=== PATIENT | female | born 1945 | race Caucasian/White ===

== ENCOUNTER 2019-09-22 16:39 | Emergency (ER) | payer OTHER, MEDICARE ==
[~2019-09-22] VITALS: Ht 167.6 cm; Wt 71.2 kg
--- NOTE | ~2019-09-22 | EMS ---
[facility] [address] [place] [address] EMS Patient Care Report Name: KAMILLA QUARLES Room #: REG FLYNN Hou#: [id number] Admission: 09/22/19 Attend Phys: Discharge: Date of : 43 Report #: [id number] THIS REPORT FOR: //name// Report Transmitted: 09/22/2019 16:[address] [facility] MED-ACT Incident [id number] @ 09/22/2019 16:02 Incident Location [address] [place] [address] Patient KAMILLA QUARLES Female, 73 Years 1945 Patient Address [address] [place] [address]. [place] [address] Patient History Breast Cancer, Patient Allergies Codeine,Doxycycline,Augmentin,Demerol, Chief Complaint Abdominal pain Disposition Transported No Lights/[place] Reason Abdominal Pain/Problems Transported To [facility] Narrative Arrived on scene at the surgery center to find the patient lying supine in bed. She is awake and alert x3 to EMS and appears in NAD. RN reports that the patient had an EGD and colonoscopy today and after surgery began complaining of lower abdominal pain. She states that the pain is in both the LLQ and RLQ and constant in nature. The patient describes the pain as a cramping pain and [facility] [address] [place] [address] EMS Patient Care Report Name: KAMILLA QUARLES Room #: REG Savi#: [id number] Admission: 09/22/19 Attend Phys: Discharge: Date of : 43 Report #: [id number] rates the pain as an 8 on the 1-10 pain scale. The physician does not order pain meds and just requests ambulance transport to [facility]. The patient denies any chest pain, shortness of breath, or N/V. ABC's, Hx, VS, PE, the patient moves herself to the cot, saline lock in place by facility in the left wrist, moved to unit, contacted [facility] with report, arrived at the ER with no changes. Initial Vitals @16:21P: 80,R: 16,BP: 148/75,Pain: 8/10,GCS: 15,SpO2: 98,Revised Trauma: 12, @16:32P: 76,R: 16,BP: 148/72,SpO2: 98, Assessments @16:13MENTAL:Person Oriented,Time Oriented,Event Oriented,Place Oriented,SKIN:HEENT:Head/Face: No Abnormalities,Neck/Airway: No Abnormalities,LUNG SOUNDS:Right Lower: Tenderness,Left Lower: Tenderness,ABDOMEN:Right Lower: Tenderness,Left Lower: Tenderness,PELVIS//GI:EXTREMITIES:Left Arm: No Abnormalities,Right Arm: No Abnormalities,Left Leg: No Abnormalities,Right Leg: No Abnormalities,PULSE:NEURO:No Abnormalities, Impression Abdominal Pain Timeline 16:01,Call Received 16:01,Psap Call 16:02,Dispatched 16:03,En Route 16:09,On Scene 16:11,At Patient 16:21,BP: 148/75 M,PULSE: 80,RR: 16 R,SPO2: 98 Ox,ETCO2: ,BG: ,PAIN: 8,GCS: 15, 16:22,Depart Scene 16:32,BP: 148/72 M,PULSE: 76,RR: 16 R,SPO2: 98 Ox,ETCO2: ,BG: ,PAIN: ,GCS: , 16:36,At Destination 16:50,Call Closed Disclaimer v1.1 Copyright 2020 [employer] This EMS Care Summary contains data elements from the applicable legal record (which may be displayed differently). It is designed to provide pertinent information for the following purposes: continuity of care, clinical quality, and state data reporting. The complete legal record is available to ED staff and administrators of the receiving hospital in [email or web address]'s Patient Tracker. All data is provided "as is."
[~2019-09-22 16:39] MED LIST: ALLEGRA180 MG PO; CELEXA 20 MG TA20 M1 PO; HYDROCODON-ACE1 EAC7 PO; PREMARIN0.3 MG PO; PRILOSEC40 MG PO; VITAMIN D-32000 UNIT PO
[2019-09-22 16:42] VITALS: BP 177/75
[2019-09-22] MEDS ORDERED: EXCEDRIN CAPLE1 EACH PO (16:49)
[2019-09-22] MEDS ORDERED: VITAMIN C100 MG PO (16:49)
[2019-09-22] MEDS ORDERED: VITAMIN B-1100 M2 PO (16:50)
[2019-09-22 17:18] LABS: ABSOLUTE NEUTROPHILS 9.4 thou/uL (1.4-8.2); BASOPHILS 0.5 % (0.0-2.0); EOSINOPHILS 0.4 % (0.0-3.0); HEMATOCRIT 38.7 % (37.0-47.0); HEMOGLOBIN 13.3 gm/dL (12.0-15.0); LYMPHOCYTES 9.4 % (24.0-44.0); MCH 32.9 pg (26.0-34.0); MCHC 34.3 g/dL (28.0-37.0); MCV 95.9 fL (80.0-100.0); MONOCYTES 4.5 % (1.0-8.0); PLATELET COUNT 276 thou/uL (150-400); POLYS 85.2 % (36.0-66.0); RBC 4.04 mil/uL (4.20-5.00); RDW 13.5 % (10.5-14.5)
[2019-09-22 17:28] LABS: ANION GAP 8 mmol/L (7-16); BUN 13 mg/dL (7-18); CALCIUM 8.7 mg/dL (8.5-10.1); CHLORIDE 100 mmol/L (98-107); CO2 28 mmol/L (21-32); CREATININE 0.8 mg/dL (0.6-1.0); GLUCOSE 93 mg/dL (74-106); POTASSIUM 3.5 mmol/L (3.5-5.1); SODIUM 136 mmol/L (136-145)
[2019-09-22 17:38] LABS: ALBUMIN 3.6 g/dL (3.4-5.0); LIPASE 85 U/L (73-393); SGOT 22 U/L (15-37); SGPT 15 U/L (30-65); TOTAL BILIRUBIN 0.6 mg/dL (0.2-1.0); TOTAL PROTEIN 7.2 g/dL (6.4-8.2); TROPONIN-I <0.06 ng/mL (<0.06)
[2019-09-22 17:38] LABS: URINE BILIRUBIN NEGATIVE (Negative); URINE BLOOD 2+ (Negative); URINE CLARITY CLEAR; URINE COLOR YELLOW; URINE GLUCOSE-RANDOM* NEGATIVE (Negative); URINE KETONES TRACE (Negative); URINE LEUKOCYTES-REFLEX NEGATIVE (Negative); URINE NITRITE-REFLEX NEGATIVE (Negative); URINE PROTEIN (DIPSTICK) NEGATIVE (Negative); URINE UROBILINOGEN 0.2 E.U./dl (0.2-1.0)
[2019-09-22] MEDS ORDERED: VITAMIN C500 M1 PO (17:39)
[2019-09-22] MEDS ORDERED: VITAMIN B-12100 MC1 PO (17:39)
[2019-09-22] MEDS ORDERED: VALIUM5 MG PO (17:40)
[2019-09-22] MEDS ORDERED: HYDROCHLOROTHIA25 M2 PO (17:40)
[2019-09-22] MEDS ORDERED: DULOXETINE HCL60 MG PO (17:40)
[2019-09-22] MEDS ORDERED: AMBIEN 10 MG TA10 MG PO (17:41)
[2019-09-22] MEDS ORDERED: TYLENOL ARTHRI650 MG PO (17:41)
[2019-09-22 17:59] LABS: CASTS None Seen /LPF (None Seen); CRYSTALS None Seen /LPF (None Seen); SQUAMOUS 0-3 Few /LPF (0-3); URINE RBC 3-10 Few /HPF (0-2); URINE WBC-REFLEX 0-5 Rare /HPF (0-5)
[2019-09-22 18:00] LABS: BACTERIA-REFLEX 1-9 Few /HPF (None Seen)
[2019-09-22] MEDS ORDERED: NORCO 5-325 TA1 EAC2 PO (19:42)
--- NOTE | 2019-09-23 07:55 | EKG ---
[facility] [place] [address] [address] ELECTROCARDIOGRAM REPORT Name: KAMILLA QUARLES Room #: DEP [facility]#: [id number] Admission: 09/22/19 Attend Phys: Discharge: 09/22/19 Date of : 43 Report #: [id number] THIS REPORT FOR: cc: Jaden Nuñez Steven F. DO Lundgren, Craig H. 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
== END 2019-09-22 19:55 | disposition home or self-care (01) ==
LOC: ER 16:39
PROVIDERS: Physician Assistant
DX: R10.84 Generalized abdominal pain (principal); Z90.49 Acquired absence of other specified parts of digestive tract; Z90.710 Acquired absence of both cervix and uterus; Z90.89 Acquired absence of other organs; Z87.891 Personal history of nicotine dependence; Z79.899 Other long term (current) drug therapy; Z88.1 Allergy status to other antibiotic agents; Z88.2 Allergy status to sulfonamides; Z88.5 Allergy status to narcotic agent; Z88.8 Allergy status to other drugs, medicaments and biological substances; Z91.048 Other nonmedicinal substance allergy status

== ENCOUNTER → 2019-11-27 | Outpatient (CLI) | payer OTHER, MEDICARE ==
[~2019-11-27] MED LIST changes: +AMBIEN 10 MG TA10 MG PO; +DULOXETINE HCL60 MG PO; +EXCEDRIN CAPLE1 EACH PO; +HYDROCHLOROTHIA25 M2 PO; +NORCO 5-325 TA1 EAC2 PO; +OMEPRAZOLE40 MG PO; +TYLENOL ARTHRI650 MG PO; +VALIUM5 MG PO; +VITAMIN B-1100 M2 PO; +VITAMIN B-12100 MC1 PO; +VITAMIN C100 MG PO; +VITAMIN C500 M1 PO
== END ==
LOC: LAB 09:37
PROVIDERS: ATTEND Surgery
DX: Z01.812 Encounter for preprocedural laboratory examination (principal); Z20.828 Contact with and (suspected) exposure to other viral communicable diseases

== ENCOUNTER 2019-12-02 11:30 | Day surgery (SDC) | payer OTHER, MEDICARE ==
[~2019-12-02] VITALS: Ht 165.1 cm; Wt 73.0 kg
--- NOTE | ~2019-12-02 | O ---
[facility] [place] [address] OPERATIVE REPORT Name: KAMILLA QUARLES Room #: DEP [facility].#: [id number] Admission: 12/02/19 Attend Phys: Pedro Thomas MD Discharge: 12/02/19 Date of : 43 Report #: [id number] THIS REPORT FOR: cc: Jaden Nuñez,Pedro Key MD ~ CC: Pedro Nuñez MD PREOPERATIVE DIAGNOSES: 1. Basal cell carcinoma of the back with positive lateral margins ____ x 2, mid lower back and right lower back. 2. Suspicious lesion, left scapula. POSTOPERATIVE DIAGNOSES: 1. Basal cell carcinoma of the back with positive lateral margins ____ x 2, mid lower back and right lower back. 2. Suspicious lesion, left scapula. PROCEDURE PERFORMED: Wide excision of basal cell x 2 in the back and excision of left scapular suspicious lesion. All these lesions were excised with ellipse about 2.5 cm x 5 cm. SURGEON: Pedro Thomas MD ANESTHESIA: IV sedation in the right lateral decubitus position. COMPLICATIONS: None. ESTIMATED BLOOD LOSS: 20 mL. PROCEDURE NOTE: With the patient in the right side down lateral position, the back was prepped and draped in sterile fashion with ChloraPrep. This was ____ off and toweled and draped in sterile fashion. Timeout was performed. 0.25% Marcaine was used to anesthetize the skin surrounding the lesion. The back lesion had a couple of stitches in it and wide margins were obtained about a little over a centimeter from each side from all around the previous biopsy site. The excision was carried down through the subcutaneous tissue removing quite a bit of subcutaneous fat. The second right-sided back lesion was excised in a similar manner and then the left posterior scapular blade lesion was also removed. The previous cancer was sent to pathology. The medial lower back one did have a basal cell that was traveling below the skin level. This is along the inferior aspect. The patient has extensive history of basal cell, I am not sure that will ever get a complete clearance. Procedure was terminated. The [address] [address] OPERATIVE REPORT Name: CONRADO QUARLESN Crystal Room #: DEP [facility].#: [id number] Admission: 12/02/19 Attend Phys: Pedro Thomas MD Discharge: 12/02/19 Date of : 43 Report #: [id number] patient was awakened and taken to recovery room having tolerated the procedure well. Dressings were applied. By: 1055 1117 Pedro Thomas MD /nt
[~2019-12-02 11:30] MED LIST changes: +BUDESONIDE EC3 MG PO; +HAIR, SKIN & N1 EAC2 PO; +LYRICA100 MG PO; +MELATONIN10 M3 PO; +MULTI VITAMIN1 EACH PO; +PROGESTERONE100 MG PO
--- NOTE | 2019-12-02 12:10 | EKG ---
[facility] [place] [address] ELECTROCARDIOGRAM REPORT Name: KAMILLA QUARLES Room #: 150-2 [facility] M.R.#: [id number] Admission: 12/02/19 Attend Phys: Pedro Thomas MD Discharge: Date of : 43 Report #: [id number] THIS REPORT FOR: cc: Jaden Nuñez Steven F. DO Lammoglia, Francisco J. MD ~ THIS REPORT FOR: //name// [facility] Test Date: 2019-12-02 Test Time: 11:57:55 Pat Name: KAMILLA QUARLES Department: Room: 150 2 Gender: F Behavioral Technician: EMILY : 1945 Requested By: Pedro Thomas Order Number: [id number] MD: Carson Juarez Measurements Intervals [place] Rate: 68 P: 24 MS: 156 QRS: -15 QRSD: 104 T: 20 QT: 426 QTc: 454 Interpretive Statements Sinus rhythm Probable left ventricular hypertrophy Compared to ECG 09/22/2019 17:28:02 Poor R-wave progression no longer present Electronically Signed On 12-02-2019 12:10:03 CDT by Carson Juarez [email or web address] <ELECTRONICALLY SIGNED> By: Carson Juarez MD 12/02/19 1210 1157 1157 Carson Juarez MD /EPI
[2019-12-02 12:14] LABS: HEMATOCRIT 38.9 % (37.0-47.0); HEMOGLOBIN 13.1 gm/dL (12.0-15.0)
[2019-12-02 12:21] VITALS: BP 143/80
[2019-12-02 12:24] LABS: CALCIUM 8.8 mg/dL (8.5-10.1); CREATININE 0.8 mg/dL (0.6-1.0); POTASSIUM 3.5 mmol/L (3.5-5.1)
[2019-12-02] MEDS ORDERED: PERCOCET 5-3251 EACH PO (15:09)
[2019-12-02 15:16] VITALS: BP 143/80
--- NOTE | 2019-12-04 16:06 | PATH ---
[facility] [place] [address] PATHOLOGY RPT PROCEDURE Name: KAMILLA QUARLES Room #: DEP [facility]..#: [id number] Admission: 12/02/19 Date of : 43 Discharge: 12/02/19 Report #: [id number] Path Case #: [id number] LCA Accession Number: [id number] . 01 Material submitted: . PART A: back - MID BACK EXCISION - FS. Modifiers: mid PART B: back - RIGHT BACK EXCISION - FS. Modifiers: right PART C: shoulder - LEFT SHOULDER BLADE EXCISION. Modifiers: left . 01 Clinical history: . HX OF NODULAR BASAL CELL CARCINOMA WITH INFILTRATIVE FEATURES AND POSITIVE PERIPHERAL MARGINS ON MID BACK AND RIGHT BACK EXCISIONS DATED 11/18/2019 (REPORT PROVIDED BY [facility] DERMATOPATHOLOGY CASE [id number]) . 02 Frozen section diagnosis: . FROZEN SECTION DIAGNOSES: (Susan Romero MD) . FSA1, Skin, mid back, excision: - BASAL CELL CARCINOMA PRESENT AT INFERIOR MARGIN, PREVIOUS BIOPSY SITE CHANGES NOTED/PRESENT. . FSB1, Skin, right back excision: - No definite invasive carcinoma present at margins on FSB1 slide. . . These findings are discussed with Dr. Pedro Thomas in OR5 and a written report is placed in the patient's chart. . Frozen section performed at [facility], [address] [facility] , [place] [address]. . . FROZEN SECTION GROSS DESCRIPTION: . A. Received fresh from the OR labeled with the patient's name, and "mid back excision", consists of an oriented ellipse of skin measuring 3.8 x 1.5 x 1.5 cm. The specimen is oriented as medial and superior. The medial is assigned 12:00, and the superior is assigned 3:00. At this point, the 12-3:00 is inked black including the deep margin, the 3-6:00 is inked yellow, the 6-9:00 is inked blue and the 9-12:00 is inked green. At this point, the specimen is serially sectioned. No grossly visible lesion is noted. There are two sutures present in the middle of the specimen. The sutures are removed and the sections of the specimen from the area with the sutures is submitted for frozen section as FSA1. This is subsequently submitted for permanent sections as A1. The unfrozen portion of the tissue is submitted in entirety for permanent sections only as A2 and A3. . [address] [address] PATHOLOGY RPT PROCEDURE Name: KAMILLA QUARLES Room #: DEP [facility] Savi#: [id number] Admission: 12/02/19 Date of : 43 Discharge: 12/02/19 Report #: [id number] Path Case #: [id number] B. Received fresh from the OR labeled with the patient's name, and "right back excision", consists of an oriented ellipse of skin measuring 3 x 1.5 x 1.5 cm. The specimen is oriented as medial and superior. The medial is assigned 12:00, and the superior is assigned 3:00. At this point, the 12-3:00 is inked black including the deep margin, the 3-6:00 is inked yellow, the 6-9:00 is inked blue and the 9-12:00 is inked green. At this point, the specimen is serially sectioned. No grossly visible lesion is noted. There are two sutures present in the middle of the specimen. The sutures are removed and the sections of the specimen from the area with the sutures is submitted for frozen section as FSB1. This is subsequently submitted for permanent sections as B1. The unfrozen portion of the tissue is submitted in entirety for permanent sections only as B2 and B3. (IUV:kathie; 12/02/2019) IZV/QMS . 02 Diagnosis: A. Skin, mid back, excision: - NODULAR BASAL CELL CARCINOMA WITH INFILTRATIVE FEATURES. - TUMOR PRESENT AT INFERIOR MARGIN WIDELY. - Superior, medial and deep margins free of malignancy. . B. Skin, right back, excision: - Extensive biopsy site changes present. - No residual malignancy present. . C. Skin, left shoulder blade, excision: - Seborrheic keratosis. - Negative for malignancy. . (IUV:guitar repair technician; 12/04/2019) [facility] 12/04/2019 1407 Local . 02 Electronically signed: . Susan Romero MD, Pathologist NPI- [id number] . 01 Gross description: . A. PLEASE SEE GROSS DESCRIPTION UNDER FROZEN SECTION HEADING. . B. PLEASE SEE GROSS DESCRIPTION UNDER FROZEN SECTION HEADING. . C. The specimen is received in formalin labeled "Hughes, Kamilla, left shoulder blade" and consists of an unoriented skin ellipse measuring 4.1 x 1.4 x 1.1 cm. Present on the surface is a flaky raised an-brown lesion measuring 1.3 x 0.9 cm that is 0.2 cm from the nearest peripheral edge. The margins are inked black. It is serially sectioned and entirely [place] [address] [email or web address] [address] PATHOLOGY RPT PROCEDURE Name: KAMILLA QUARLES Room #: DEP [facility] M.R.#: [id number] Admission: 12/02/19 Date of : 43 Discharge: 12/02/19 Report #: [id number] Path Case #: [id number] submitted in C1-C5 with tips in C5. (SDY; 12/03/2019) [facility] 12/03/2019 1023 Local . 02 Pathologist provided ICD-10: C44.519, L82.1 . 02 CPT . 785594, 999384, 899335, 076727, 631874 Specimen Comment: A courtesy copy of this report has been sent to [phone] Specimen Comment: Report sent to Performed at: [id number] [facility] [address], [place], [place] [id number] MD Frandy Ba MD Phone: [phone] Performed at: [address] [id number] MD Susan Romero MD Phone: [phone]
== END 2019-12-02 16:10 | disposition home or self-care (01) ==
LOC: TBA 11:30 → OR 11:30 → TBA 11:36 → OR 14:52
PROVIDERS: ATTEND Surgery
DX: C44.519 Basal cell carcinoma of skin of other part of trunk (principal); L82.1 Other seborrheic keratosis; I10 Essential (primary) hypertension; M19.90 Unspecified osteoarthritis, unspecified site; F32.9 Major depressive disorder, single episode, unspecified; K21.9 Gastro-esophageal reflux disease without esophagitis; Z98.890 Other specified postprocedural states; Z79.899 Other long term (current) drug therapy; Z87.891 Personal history of nicotine dependence; Z85.828 Personal history of other malignant neoplasm of skin; Z85.3 Personal history of malignant neoplasm of breast; Z90.710 Acquired absence of both cervix and uterus; Z90.49 Acquired absence of other specified parts of digestive tract; Z98.41 Cataract extraction status, right eye; Z98.42 Cataract extraction status, left eye; Z88.2 Allergy status to sulfonamides; Z88.8 Allergy status to other drugs, medicaments and biological substances
CPT/HCPCS: 50010; 50101; 50386; 50417; 56526; 62110; 62850; 70005

== ENCOUNTER → 2020-01-27 | Outpatient (CLI) | payer OTHER, MEDICARE ==
[~2020-01-27] MED LIST changes: +PERCOCET 5-3251 EACH PO
== END ==
LOC: LAB 13:50
PROVIDERS: ATTEND Surgery
DX: Z01.812 Encounter for preprocedural laboratory examination (principal); Z20.828 Contact with and (suspected) exposure to other viral communicable diseases

== ENCOUNTER 2020-01-30 10:06 | Day surgery (SDC) | payer OTHER, MEDICARE ==
[~2020-01-30] VITALS: Ht 165.1 cm; Wt 75.3 kg
[2020-01-30 11:08] VITALS: BP 148/75
[2020-01-30 11:12] LABS: CALCIUM 8.1 mg/dL (8.5-10.1); CREATININE 0.8 mg/dL (0.6-1.0); POTASSIUM 3.5 mmol/L (3.5-5.1)
[2020-01-30] MEDS ORDERED: PERCOCET 5-3251 EACH PO (12:44)
[2020-01-30 13:24] VITALS: BP 148/75
--- NOTE | 2020-02-03 12:25 | O ---
[facility] [place] [address] OPERATIVE REPORT Name: KAMILLA QUARLES Room #: DEP [facility].#: [id number] Admission: 01/30/20 Attend Phys: Pedro Thomas MD Discharge: 01/30/20 Date of : 43 Report #: [id number] THIS REPORT FOR: cc: Jaden Nuñez,Pedro Key MD ~ CC: Pedro Nuñez DATE OF SERVICE: 01/30/2020 PREOPERATIVE DIAGNOSES: 1. Residual basal cell skin cancer in the lower back, now visible. 2. Left mid back lesion with ulcerative appearance. POSTOPERATIVE DIAGNOSES: 1. Residual basal cell skin cancer in the lower back, now visible. 2. Left mid back lesion with ulcerative appearance. PROCEDURE PERFORMED: Excision of lower back lesion with a 3 x 8 cm ellipse, excision of the left midback lesion with 4 x 9 cm ellipse. PROCEDURE NOTE: With the patient in the lateral position, the back was prepped and draped in sterile fashion. A 0.25% Marcaine was used to anesthetize the skin at both sites. The basal cell cancer side was excised with a 3 x 8 cm ellipse. This was taken down to full thickness of the skin and into the subcutaneous tissue. Skin flap was created. The skin was then brought together. A 3-0 and 4-0 nylon vertical mattress suture was placed and simple sutures were also used. Specimen was given to pathologist with orientation at the 6 o'clock position. Frozen section was obtained. The margins are clear. There is basal cell that is seen. The upper lesion was excised in an elliptical manner and then closed without difficulty. Again, 3-0 and 4-0 nylon interrupted suture was used. Antibiotic ointment, 4 x 4, OpSite used for dressing at both sites. The specimen on the left mid back lesion was sent for permanent section. <ELECTRONICALLY SIGNED> By: Pedro Thomas MD 02/03/20 1225 1433 1556 Pedro Thomas MD /nt
--- NOTE | 2020-02-03 13:08 | PATH ---
[facility] [place] [address] PATHOLOGY RPT PROCEDURE Name: KAMILLA QUARLES Room #: DEP [facility]..#: [id number] Admission: 01/30/20 Date of : 43 Discharge: 01/30/20 Report #: [id number] Path Case #: [id number] LCA Accession Number: [id number] . 01 Material submitted: . PART A: back - LOWER BACK, RESIDUAL BASAL CELL CARCINOMA, SUTURE AT 6:00 - FS. Modifiers: lower PART B: back - LEFT UPPER BACK LESION, SHORT SUTURE 6:00, LONG SUTURE 9:00. Modifiers: left, upper . 01 Clinical history: . BASAL CELL . 02 Frozen section diagnosis: . FROZEN SECTION DIAGNOSIS: (Susan Romero M.D.) . FSA1 and FSA2. Skin, lower back residual basal cell carcinoma re-excision: - Two blocks only medical representative sections examined from large ellipse submitted for examination. - No definitive invasive carcinoma at 6:00 margin on FS slide. - Remainder of specimen submitted for permanent sections only. . These findings are discussed with Dr. Pedro Thomas and a written report is placed in the patient's chart. . . FROZEN SECTION GROSS DESCRIPTION: A. Specimen is received fresh from the OR labeled with the patient's name, "lower back residual basal cell carcinoma suture at 6:00", consists of an oriented ellipse of skin measuring 6 x 2.2 x 1 cm along with its attached fat. The specimen has a suture designating 6:00. The 12-3:00 is inked black including the deep margin, the 3-6:00 is inked blue, the 6-9:00 is inked green and 9-12:00 is inked orange including the respective deep margin. At this point, the specimen is serially sectioned. Two sections from the 6-12:00 are submitted for frozen section based on the discussion with Dr. Thomas in the OR. The first section is submitted in FSA1; this is subsequently submitted for permanent sections as A1. The second section from 6:00 to 12:00 is submitted for frozen section as FSA2, this is subsequently submitted for permanent sections as A2. The remainder of the specimen is submitted in entirety in A3 to A6. A6 represents tips. IUV:kathie; 01/30/2020) . . Frozen section performed at [facility], [address] [place] [address] , [place] [address]. IZV/QMS . [address] [address] PATHOLOGY RPT PROCEDURE Name: KAMILLA QUARLES Room #: DEP [facility] Savi#: [id number] Admission: 01/30/20 Date of : 43 Discharge: 01/30/20 Report #: [id number] Path Case #: [id number] Diagnosis: A. Skin and subcutaneous tissue, "lower back residual basal cell carcinoma", resection: - RESIDUAL BASAL CELL CARCINOMA, INFILTRATIVE SUBTYPE, WITH PREVIOUS BIOPSY SITE CHANGES; MARGINS FREE OF CARCINOMA. . B. Skin and subcutaneous tissue, "left upper back lesion", excision: - BASAL CELL CARCINOMA, SUPERFICIAL AND NODULOCYSTIC SUBTYPES; SUPERFICIAL BASAL CELL FOCUS VERY CLOSE TO THE SIDE MARGIN IN THE 3:00-6:00 (BLACK) QUADRANT. - See comment. . (CLW:samina; 02/03/2020) [facility] 02/03/2020 1129 Local . 02 Comment: Within specimen B, a superficial basal cell carcinoma focus is less than 1 mm from the side margin in the 3:00-6:00 (black) quadrant. The margin is close, but free of carcinoma. Clinical correlation is required. . The patient has a history of "nodular basal cell carcinoma with infiltrative features, tumor present at inferior margin widely" from a previous mid back skin excision ([id number]). . (CLW:samina; 02/03/2020) . 02 Electronically signed: . Malia Mercado MD, Pathologist NPI- [id number] . 01 Gross description: . A. PLEASE SEE GROSS DESCRIPTION UNDER FROZEN SECTION. . B. Received in formalin labeled "Kamilla Quarles, left upper lesion, short suture 6:00, long suture 9:00" is an oriented ellipse of skin measuring 7.2 x 3.0 x 1.7 cm. There is a short suture on one long edge of the specimen, indicating 6:00, and a long suture at one tip, indicating 9:00. The skin surface displays a an-pink scar/biopsy site measuring 2.5 x 1.7 cm. The margins are inked as follows: 9:00 to 12:00 is blue, 12:00 to 3:00 is yellow, 3:00 to 6:00 to 9:00 is black. The specimen is sectioned from 9:00 to 3:00 into 18 pieces. The specimen is submitted entirely in B1-B12, with the tips in the last cassette. ([facility]; 01/31/2020) [facility] 02/01/2020 1110 Local . 02 Pathologist provided ICD-10: C44.519 [address] [address] [place] [address] PATHOLOGY RPT PROCEDURE Name: CONRADO QUARLESN Crystal Room #: DEP [facility] Savi#: [id number] Admission: 01/30/20 Date of : 43 Discharge: 01/30/20 Report #: [id number] Path Case #: [id number] . 02 [facility] . [id number], [id number], [id number], [id number] Specimen Comment: A courtesy copy of this report has been sent to [phone] Specimen Comment: [id number] Specimen Comment: Report sent to / DR MARROQUIN Performed at: 01 [facility] [address] [facility] [address], [place], [place] [id number] MD Donald Hubbard MD Phone: [phone] Performed at: [address] [facility] [address] [address] [address] [place], [place] [id number] MD Susan Romero MD Phone: [phone]
== END 2020-01-30 14:00 | disposition home or self-care (01) ==
LOC: OR 10:06 → TBA 10:12 → OR 11:13
PROVIDERS: ATTEND Surgery
DX: C44.519 Basal cell carcinoma of skin of other part of trunk (principal); R22.2 Localized swelling, mass and lump, trunk; I10 Essential (primary) hypertension; K21.9 Gastro-esophageal reflux disease without esophagitis; M19.90 Unspecified osteoarthritis, unspecified site; Z98.890 Other specified postprocedural states; Z79.899 Other long term (current) drug therapy; Z90.49 Acquired absence of other specified parts of digestive tract; Z85.3 Personal history of malignant neoplasm of breast; Z87.891 Personal history of nicotine dependence; Z85.828 Personal history of other malignant neoplasm of skin; Z90.710 Acquired absence of both cervix and uterus; Z96.652 Presence of left artificial knee joint; Z88.2 Allergy status to sulfonamides; Z88.8 Allergy status to other drugs, medicaments and biological substances
CPT/HCPCS: 50010; 50101; 50386; 50417; 56526; 56527; 62110; 62900; 70005

== ENCOUNTER → 2020-03-02 | Outpatient (CLI) | payer OTHER, MEDICARE | LOC: ULTRA 16:18 | PROVIDERS: ATTEND Neuromusculoskeletal Medicine & OMM | DX: M79.89 Other specified soft tissue disorders (principal) ==

== ENCOUNTER → 2020-03-26 | Outpatient (CLI) | payer OTHER, MEDICARE | LOC: MRI 10:09 | PROVIDERS: ATTEND Preventive Medicine Occupational Medicine | DX: S43.432A Superior glenoid labrum lesion of left shoulder, initial encounter (principal); M19.012 Primary osteoarthritis, left shoulder; M25.412 Effusion, left shoulder; M75.102 Unspecified rotator cuff tear or rupture of left shoulder, not specified as traumatic; M75.82 Other shoulder lesions, left shoulder; X58.XXXA Exposure to other specified factors, initial encounter; Y93.89 Activity, other specified; Y92.89 Other specified places as the place of occurrence of the external cause; Y99.8 Other external cause status ==

== ENCOUNTER 2020-09-15 06:08 | Day surgery (SDC) | payer OTHER, MEDICARE ==
[~2020-09-15] VITALS: Ht 167.6 cm; Wt 78.0 kg
[~2020-09-15 06:08] MED LIST changes: +BIOIDENTICAL HORMONE PO; +HYDROCHLOROTHIA25 M1 PO; +VITAMIN D-40010 MCG PO
[2020-09-15 06:57] LABS: HEMATOCRIT 38.3 % (37.0-47.0); HEMOGLOBIN 12.7 gm/dL (12.0-15.0)
[2020-09-15 07:15] VITALS: BP 120/74
[2020-09-15] MEDS ORDERED: HYDROCODON-ACE1 EAC7 PO (09:49)
[2020-09-15 10:24] VITALS: BP 120/74
--- NOTE | 2020-09-20 11:38 | O ---
[facility] [place] [address] OPERATIVE REPORT Name: KAMILLA QUARLES Room #: DEP [facility].#: [id number] Admission: 09/15/20 Attend Phys: Pedro Thomas MD Discharge: 09/15/20 Date of : 43 Report #: [id number] THIS REPORT FOR: cc: Jaden Nuñez,Pedro Key MD ~ DOC #: [id number] cc: MD Pedro Rodriguez MD DATE OF SERVICE: 09/15/2020 PREOPERATIVE DIAGNOSES: 1. Nonhealing rash lesion over the left lower breast. Prior history of breast cancer. 2. Right upper arm nodular lesion consistent with skin cancer. 3. Nodular lesion in the right proximal forearm consistent with skin cancer. POSTOPERATIVE DIAGNOSES: 1. Nonhealing rash lesion over the left lower breast. Prior history of breast cancer. 2. Right upper arm nodular lesion consistent with skin cancer. 3. Nodular lesion in the right proximal forearm consistent with skin cancer. PROCEDURES PERFORMED: 1. Excision of left breast nonhealing rash with normal margins. 2. Excision of right forearm lesion with normal margin. 3. Excision of right upper arm lesion. ANESTHESIA: General SURGEON: Pedro Thomas MD COMPLICATIONS: None. ESTIMATED BLOOD LOSS: 20 mL. DESCRIPTION OF PROCEDURE: With the patient under general anesthesia and LMA, the left breast was prepped and draped in sterile fashion. Timeout was performed. A 0.25% Marcaine was injected around the lesion. The patient did receive preoperative IV antibiotics. An ellipse was drawn around the lesion with obtaining a normal margin. This measured 7 cm x 3.3 cm in the cephalad caudad direction. The skin was excised sharply and then taken off the subcutaneous fat was dissected free with a scalpel. Cautery was used for hemostasis. After obtaining hemostasis, the skin was brought back together with 4-0 PDS in running fashion. The 4-0 PDS was also used interrupted over the skin [address] [address] OPERATIVE REPORT Name: KAMILLA QUARLES Room #: DEP [facility]..#: [id number] Admission: 09/15/20 Attend Phys: Pedro Thomas MD Discharge: 09/15/20 Date of : 43 Report #: [id number] x2 reinforcing the subcuticular closure. Steri-Strip was applied. Telfa, 4 x 4, OpSite used for dressing. The forearm and upper arm was then isolated with ChloraPrep and towels. Both lesions were excised in elliptical fashion. The upper arm is a little bit smaller. The ellipse is 2.7 x 6 cm. The right forearm measured 8 cm x 3.2 cm ellipse. She had noticed some thickening inferior to the nodule, even though nothing is visible. I did try to include that area. The excision turned out to be fairly large because of the size of the lesion that had been present. The patient has had multiple skin cancers in her back that has been excised in the past. A 4-0 nylon was used to close both incisions with running locking fashion. The forearm has a little bit of tightness and couple of interrupted 4-0 nylon was also placed for support. Both incisions are hemostatic. Antibiotic ointment, 4 x 4, Kerlix was used to wrap the arm postop. The patient tolerated the procedure well. Pedro Thomas MD PYC/KDA <ELECTRONICALLY SIGNED> By: Pedro Thomas MD 09/20/20 1138 1124 1153 Pedro Thomas MD /nt
--- NOTE | 2020-09-20 17:07 | PATH ---
[facility] [place] [address] PATHOLOGY RPT PROCEDURE Name: KAMILLA QUARLES Room #: [place] [facility] [place] [id number] Admission: 09/15/20 Date of : 43 Discharge: 09/15/20 Report #: [id number] Path Case #: [id number] [facility] Accession Number: [id number] . 01 Material submitted: . PART A: breast - LEFT LOWER BREAST LESION SUTURE SHORT MARKING SUPERIOR LONG MARKING LATERA. Modifiers: left, lower PART B: forearm - RIGHT FOREARM LESION SUTURE SHORT MARKING SUPERIOR LONG MARKING LATERAL. Modifiers: right PART C: arm - RIGHT UPPER ARM LESION SUTURE SHORT MARKING SUPERIOR LONG MARKING LATERAL. Modifiers: right, upper . 01 Clinician provided ICD-10: L98.9 . 01 Clinical history: . EXCISION LESION LEFT BREAST LESION/ RIGHT UPPER ARM LESIONS/ RIGHT FOREARM . 02 Diagnosis: A. Skin, left lower breast lesion, excision: - MULTIFOCAL SUPERFICIAL BASAL CELL CARCINOMA ASSOCIATED WITH FOCAL ULCERATION. - Margins of resection free of malignancy. . B. Skin, right forearm lesion, excision: - BASAL CELL CARCINOMA. - Margins of resection widely free of malignancy. . C. Skin, right upper arm lesion, excision: - BASAL CELL CARCINOMA ASSOCIATED WITH EXTENSIVE ULCERATION. - Margins of resection free of malignancy. (IUV:kathie; 09/17/2020) S 09/17/2020 1504 Local . 02 Electronically signed: . Susan Romero MD, Pathologist NPI- [id number] . 01 Gross description: . A. The specimen is received in formalin, labeled "Kamilla Quarles, left lower breast lesion, short suture superior, long suture lateral". Received is an oriented ellipse of skin measuring 4.8 x 2.6 x 0.7 cm in greatest dimensions with a short suture placed along one edge designating this as the superior aspect (12:00), and a long suture placed at one tip designating this as the lateral aspect (3:00). The surgical margins are inked as follows: 12 to 3:00-yellow, 3 to 9:00-black, and 9 to 12:00-blue. [address] [address] PATHOLOGY RPT PROCEDURE Name: CONRADO QUARLESN Crystal Room #: [place]P [facility] [place] M.Sandra#: [id number] Admission: 09/15/20 Date of : 43 Discharge: 09/15/20 Report #: [id number] Path Case #: [id number] The epidermal surface displays a poorly circumscribed, wrinkled and white-an lesion measuring 2.1 x 0.8 cm. The specimen is sectioned into 14 pieces and entirely submitted in cassettes A1 through A7, with the 3:00 and 9:00 aspects placed in cassette A7. . B. The specimen is received in formalin, labeled "Kamilla Quarles, right forearm, short suture superior, long suture lateral". Received is an oriented ellipse of skin measuring 6.7 x 2.8 x 1.0 cm in greatest dimensions with a short suture placed along one edge designating this as the superior margin (12:00 close Brink, and a long suture placed at one tip designating this as the lateral margin (9:00). The surgical margins are inked as follows: 12 to 3:00-yellow, 3 to 9:00-black, and 9 to 12:00-blue. The epidermal surface displays a poorly circumscribed, irregular in contour, partially crusted and white-an an to light brown lesion measuring 1.8 x 1.3 cm. The specimen is sectioned into 17 pieces and entirely submitted in cassettes B1 through B12, with the 3:00 and 9:00 aspect in cassette B12. . C. The specimen is received in formalin, labeled "Kamilla Quarles, right upper arm, short suture superior, long suture lateral". Received is an oriented ellipse of skin measuring 6.4 x 2.7 x 0.9 cm in greatest dimensions with a short suture placed along one edge designating this as the superior margin (12:00), and a long suture placed at one tip designating this as the lateral margin )9:00). The surgical margins are inked as follows: 12 to 3:00-yellow, 3 to 6:00-blue, and 6 to 12:00-black. The epidermal surface displays a poorly circumscribed, irregular in contour, partially crusted and white-an to light brown lesion measuring 2.1 x 1.4 cm. The specimen is sectioned into 17 pieces and entirely submitted in cassettes C1 through C12, with the 3:00 and 9:00 aspects placed in cassette C12. (CAA; 09/16/2020) QAC/QAC 09/16/2020 1922 Local . 02 Pathologist provided ICD-10: C44.511, C44.612 . 02 CPT . 658326, 248108, [id number] Specimen Comment: A courtesy copy of this report has been sent to [phone], [phone] Specimen Comment: [id number] Specimen Comment: Report sent to / DR MARROQUIN Performed at: [address], [place], [place] [id number] MD Donald Hubbard MD Phone: [phone] Performed at: [address] [id number] [facility] [address] [place] [address] PATHOLOGY RPT PROCEDURE Name: KAMILLA QUARLES Room #: [place]P [facility] [place].R.#: [id number] Admission: 09/15/20 Date of : 43 Discharge: 09/15/20 Report #: [id number] Path Case #: [id number] MD Susan Romero MD Phone: [phone]
== END 2020-09-15 11:00 | disposition home or self-care (01) ==
LOC: OR 06:08 → TBA 06:08 → OR 11:00
PROVIDERS: ATTEND Surgery
DX: C44.511 Basal cell carcinoma of skin of breast (principal); C44.612 Basal cell carcinoma of skin of right upper limb, including shoulder; M19.90 Unspecified osteoarthritis, unspecified site; K21.9 Gastro-esophageal reflux disease without esophagitis; Z98.890 Other specified postprocedural states; Z85.3 Personal history of malignant neoplasm of breast; Z79.899 Other long term (current) drug therapy; Z90.49 Acquired absence of other specified parts of digestive tract; Z90.710 Acquired absence of both cervix and uterus; Z96.652 Presence of left artificial knee joint; Z98.41 Cataract extraction status, right eye; Z98.42 Cataract extraction status, left eye; Z85.828 Personal history of other malignant neoplasm of skin; Z88.2 Allergy status to sulfonamides; Z88.6 Allergy status to analgesic agent
CPT/HCPCS: 50010; 50101; 50386; 50403; 56524; 56526; 62110; 62900; 70005

== ENCOUNTER → 2020-11-08 | Outpatient (CLI) | payer OTHER, MEDICARE | LOC: SJCVC 11:09 | PROVIDERS: ATTEND Internal Medicine | DX: R94.31 Abnormal electrocardiogram [ECG] [EKG] (principal); R60.0 Localized edema; R06.02 Shortness of breath; Z13.220 Encounter for screening for lipoid disorders; Z87.891 Personal history of nicotine dependence; Z72.89 Other problems related to lifestyle; Z79.899 Other long term (current) drug therapy; Z79.82 Long term (current) use of aspirin; Z88.5 Allergy status to narcotic agent; Z88.2 Allergy status to sulfonamides; Z88.1 Allergy status to other antibiotic agents ==

== ENCOUNTER → 2020-12-13 | Outpatient (CLI) | payer OTHER, MEDICARE | LOC: SJCVCIMAG 08:08 | PROVIDERS: ATTEND Internal Medicine | DX: I08.3 Combined rheumatic disorders of mitral, aortic and tricuspid valves (principal); R60.0 Localized edema; R06.00 Dyspnea, unspecified; M79.89 Other specified soft tissue disorders; I87.2 Venous insufficiency (chronic) (peripheral); I83.92 Asymptomatic varicose veins of left lower extremity; Z85.9 Personal history of malignant neoplasm, unspecified; Z88.5 Allergy status to narcotic agent; Z88.1 Allergy status to other antibiotic agents; Z88.2 Allergy status to sulfonamides; Z88.8 Allergy status to other drugs, medicaments and biological substances; Z79.82 Long term (current) use of aspirin; Z79.899 Other long term (current) drug therapy; Z87.891 Personal history of nicotine dependence ==

== ENCOUNTER → 2021-01-10 | Outpatient (CLI) | payer OTHER, MEDICARE | LOC: SJCVC 10:50 | PROVIDERS: ATTEND Internal Medicine | DX: R60.0 Localized edema (principal); Z90.49 Acquired absence of other specified parts of digestive tract; Z98.890 Other specified postprocedural states; Z79.82 Long term (current) use of aspirin; Z79.899 Other long term (current) drug therapy; Z88.5 Allergy status to narcotic agent; Z88.1 Allergy status to other antibiotic agents; Z88.2 Allergy status to sulfonamides; Z88.8 Allergy status to other drugs, medicaments and biological substances ==

== ENCOUNTER → 2021-02-07 | Outpatient (CLI) | payer OTHER, MEDICARE | LOC: SJCVC 10:55 | PROVIDERS: ATTEND Internal Medicine | DX: R22.43 Localized swelling, mass and lump, lower limb, bilateral (principal); Z79.899 Other long term (current) drug therapy ==

== ENCOUNTER → 2021-02-28 | Outpatient (CLI) | payer OTHER, MEDICARE | LOC: SJCVC 11:10 | PROVIDERS: ATTEND Internal Medicine | DX: R60.0 Localized edema (principal); F32.9 Major depressive disorder, single episode, unspecified; K21.9 Gastro-esophageal reflux disease without esophagitis; Z87.891 Personal history of nicotine dependence; Z72.89 Other problems related to lifestyle; Z88.5 Allergy status to narcotic agent; Z88.1 Allergy status to other antibiotic agents; Z88.2 Allergy status to sulfonamides; Z79.82 Long term (current) use of aspirin; Z79.899 Other long term (current) drug therapy ==